=== PATIENT | female | born 1975 | race Caucasian/White ===

== ENCOUNTER 2023-07-25 08:38 | Day surgery (SDC) | payer OTHER ==
[~2023-07-25] VITALS: Ht 154.9 cm; Wt 98.4 kg
[~2023-07-25 08:38] MED LIST: ENAL-197 PO; HYDR-4004 PO
[2023-07-25] MEDS ORDERED: fentaNYL citrate 0.05 MG/ML VIAL ONE (09:34)
[2023-07-25] MEDS ORDERED: LIDOCAINE 2% 100 MG/5 ML UJET TP ONE (09:34)
[2023-07-25] MEDS ORDERED: fentaNYL citrate 0.05 MG/ML VIAL IVP ONE (11:10)
== END 2023-07-25 10:45 | disposition home or self-care (01) ==
LOC: MOR 08:38 → MMU 08:39 → MOR 10:45
PROVIDERS: ATTEND Internal Medicine Gastroenterology
DX: Z12.11 Encounter for screening for malignant neoplasm of colon (principal); I10 Essential (primary) hypertension; K21.9 Gastro-esophageal reflux disease without esophagitis; F41.9 Anxiety disorder, unspecified; E66.9 Obesity, unspecified; F32.A Depression, unspecified; Z68.41 Body mass index [BMI] 40.0-44.9, adult; Z79.899 Other long term (current) drug therapy
CPT/HCPCS: 45378; J3010

== ENCOUNTER 2023-11-10 05:10 | Emergency (ER) | payer OTHER ==
[~2023-11-10] VITALS: Ht 157.5 cm; Wt 94.8 kg
[2023-11-10 05:16] VITALS: BP 124/78; PULSE 95; RESP 20; TEMP 98.7; O2SAT 98
[2023-11-10] MEDS ORDERED: NAPR-1704 PO (06:11)
[2023-11-10] MEDS ORDERED: CEPH-588 PO (06:11)
[2023-11-10] MEDS ORDERED: KETOROLAC 30 MG/ML VIAL IM ONE (06:20)
[2023-11-10 06:30] VITALS: BP 120/65; PULSE 87; RESP 20; TEMP 98.7; O2SAT 98
== END 2023-11-10 06:30 | disposition home or self-care (01) ==
LOC: MED 05:10
DX: N39.0 Urinary tract infection, site not specified (principal); I10 Essential (primary) hypertension; Z79.899 Other long term (current) drug therapy
CPT/HCPCS: 81002; 81025; 96365; 99284; J1885

== ENCOUNTER 2023-11-24 17:01 | Emergency (ER) | payer OTHER ==
[~2023-11-24] VITALS: Ht 157.5 cm; Wt 97.5 kg
[~2023-11-24 17:01] MED LIST changes: +CEPH-588 PO; +NAPR-1704 PO
[2023-11-24 17:26] VITALS: BP 130/84; PULSE 91; RESP 16; TEMP 99.5; O2SAT 98
[2023-11-24 17:53] LABS: BASOPHILS % (AUTO) 0.4 % (0.0-2.0); EOSINOPHILS % (AUTO) 0.2 % (0.0-4.0); HEMATOCRIT 39.8 % (36-48); HEMOGLOBIN 13.4 g/dL (12.0-16.0); LYMPHOCYTES # (AUTO) 1.4 K/uL (2.5-16.5); LYMPHOCYTES % (AUTO) 18.2 % (20.5-51.1); MEAN CORPUSCULAR HEMOGLOBIN 28 pg (27-31); MEAN CORPUSCULAR HGB CONC 34 g/dL (33-37); MEAN CORPUSCULAR VOLUME 82.8 fL (80-94); MONOCYTES # (AUTO) 0.6 K/uL (0.8-1.0); MONOCYTES % (AUTO) 7.6 % (1.7-9.3); NEUTROPHILS # (AUTO) 5.6 K/uL (1.8-7.7); NEUTROPHILS % (AUTO) 73.6 % (42.2-75.2); PLATELET COUNT (AUTO) 288 K/uL (140-450); RED BLOOD CELL COUNT(AUTO) 4.81 MIL/uL (4.20-5.40); RED CELL DISTRIBUTION WIDTH 12.7 % (11.6-13.7); WHITE BLOOD COUNT (AUTO) 7.6 K/uL (4.8-10.8)
[2023-11-24 18:29] LABS: ANION GAP 13.7 (8-16); CALCIUM 9.1 mg/dL (8.5-10.1); CARBON DIOXIDE 23.2 mmol/L (21-32); CREATININE 1.2 mg/dL (0.6-1.3); POTASSIUM 3.9 mmol/L (3.5-5.1); TOTAL BILIRUBIN 0.8 mg/dL (0.0-1.0); TOTAL PROTEIN, SERUM 8.6 g/dL (6.4-8.2)
[2023-11-24] MEDS ORDERED: ONDANSETRON 4 MG ODT PO ONE (18:30)
[2023-11-24] MEDS ORDERED: FAMO-90 PO (21:19)
[2023-11-24] MEDS ORDERED: NITR100C7 PO (21:19)
[2023-11-24 22:06] LABS: APPEARANCE,URINE CLOUDY (CLEAR); BILIRUBIN,URINE 1+ (NEGATIVE); BLOOD, URINE 1+ (NEGATIVE); COLOR,URINE YELLOW (YELLOW); LEUKOCYTE ESTERASE ,URINE 2+ (NEGATIVE); NITRITE, URINE NEGATIVE (NEGATIVE); PROTEIN,URINE 3+ (NEGATIVE); UGLUCOSE TRACE (NEGATIVE)
[2023-11-24 22:15] LABS: BACTERIA,URINE 3+ /HPF (None Seen); ICTOTEST NEGATIVE (NEGATIVE); MUCUS,URINE 1+ /LPF (None Seen); SQUAMOUS EPITHELIAL CELL,UR 4-10 (MOD) /LPF (0-3 (FEW)); TRICHOMONAS,URINE None Seen /HPF (None Seen); WBC,URINE TOO MANY TO COUNT /HPF (0-5); WHITE BLOOD CELL CASTS,URINE 0-3 /LPF (None Seen); YEAST,URINE None Seen /HPF (None Seen)
== END 2023-11-24 21:28 | disposition home or self-care (01) ==
LOC: MED 17:01
DX: K29.70 Gastritis, unspecified, without bleeding (principal); N39.0 Urinary tract infection, site not specified; I10 Essential (primary) hypertension; Z79.899 Other long term (current) drug therapy
CPT/HCPCS: 36415; 80053; 81001; 81025; 83690; 85025; 87086; 99283; G0480; Q0162

== ENCOUNTER 2023-11-27 17:35 | Inpatient (IN) | payer OTHER ==
[~2023-11-27] VITALS: Ht 157.5 cm; Wt 94.3 kg
[~2023-11-27 17:35] MED LIST changes: +FAMO-90 PO; +NITR100C7 PO
[2023-11-27 17:45] VITALS: BP 127/91; PULSE 88; RESP 20; TEMP 97.7; O2SAT 98
[2023-11-27] MEDS ORDERED: MORPHINE SULFATE 4 MG/ML SYR IVP ONE ×2 (18:50→23:55)
[2023-11-27] MEDS ORDERED: METOCLOPRAMIDE 10 MG/2 ML INJ VIAL IVP ONE (18:50)
[2023-11-27 20:14] LABS: BASOPHILS % (AUTO) 0.2 % (0.0-2.0); EOSINOPHILS % (AUTO) 0.1 % (0.0-4.0); HEMATOCRIT 44.2 % (36-48); HEMOGLOBIN 14.6 g/dL (12.0-16.0); LYMPHOCYTES # (AUTO) 1.4 K/uL (2.5-16.5); LYMPHOCYTES % (AUTO) 11.9 % (20.5-51.1); MEAN CORPUSCULAR HEMOGLOBIN 28 pg (27-31); MEAN CORPUSCULAR HGB CONC 33 g/dL (33-37); MEAN CORPUSCULAR VOLUME 83.6 fL (80-94); MONOCYTES # (AUTO) 0.7 K/uL (0.8-1.0); MONOCYTES % (AUTO) 5.6 % (1.7-9.3); NEUTROPHILS # (AUTO) 9.8 K/uL (1.8-7.7); NEUTROPHILS % (AUTO) 82.2 % (42.2-75.2); PLATELET COUNT (AUTO) 360 K/uL (140-450); RED BLOOD CELL COUNT(AUTO) 5.29 MIL/uL (4.20-5.40); RED CELL DISTRIBUTION WIDTH 13.2 % (11.6-13.7); WHITE BLOOD COUNT (AUTO) 11.9 K/uL (4.8-10.8)
[2023-11-27] MEDS ORDERED: METOCLOPRAMIDE 10 MG/2 ML INJ VIAL ONE (20:32)
[2023-11-27] MEDS ORDERED: MORPHINE SULFATE 4 MG/ML SYR ONE ×2 (20:33→23:55)
[2023-11-27 20:35] LABS: ANION GAP 17.3 (8-16); CARBON DIOXIDE 25.7 mmol/L (21-32); CHLORIDE 95 mmol/L (98-107); CREATININE 1.6 mg/dL (0.6-1.3); GFR ARICAN-AMERICAN 44 mL/min (>90); GFR NON ARICAN-AMERICAN 37 mL/min (>90); GLUCOSE 275 mg/dL (74-106); SODIUM SERUM 133 mmol/L (136-145); UREA NITROGEN, BLOOD 15 mg/dL (7-18)
[2023-11-27 20:48] LABS: ALANINE AMINOTRANSFERASE 787 U/L (12-78); ALBUMIN 3.3 g/dL (3.4-5.0); ALKALINE PHOSPHATASE 300 U/L (50-136); ASPARTATE AMINOTRANSFERASE 437 U/L (15-37); TOTAL BILIRUBIN 4.1 mg/dL (0.0-1.0); TOTAL PROTEIN, SERUM 8.9 g/dL (6.4-8.2)
[2023-11-27 21:34] LABS: LIPASE 14520 U/L (16-77)
[2023-11-28] MEDS: cefTRIAXone 2,000 MG in DEXTROSE 5% 100 ML IV SCH (01:00)
[2023-11-28] MEDS ORDERED: MAGNESIUM OXIDE 400 MG TAB PO PRN (01:05)
[2023-11-28] MEDS ORDERED: ONDANSETRON 4 MG/2 ML VIAL IVP PRN (01:05)
[2023-11-28] MEDS ORDERED: KCL 20 MEQ IN 100 mL PREMIX 200 ML IV PRN (01:05)
[2023-11-28] MEDS ORDERED: POTASSIUM CHLORIDE 10 MEQ TABER PO PRN (01:05)
[2023-11-28] MEDS ORDERED: HYDROcodone/APAP 5/325 MG 1 TAB TAB PO PRN (01:05)
[2023-11-28] MEDS ORDERED: MAG SULF 2000 MG/WATER PREMIX 50 ML IV PRN (01:05)
[2023-11-28] MEDS ORDERED: cefTRIAXone 2,000 MG VIAL ONE (02:43)
[2023-11-28] MEDS: NACL 0.9% 1,000 ML IV SCH ×4 (05:41→21:05)
[2023-11-28] MEDS: MORPHINE SULFATE 4 MG/ML SYR IVP PRN ×2 (05:51→11:41)
[2023-11-28 07:36] VITALS: O2SAT 98
[2023-11-28 09:36] VITALS: O2SAT 98
[2023-11-28 11:36] VITALS: O2SAT 98
[2023-11-28 12:53] VITALS: RESP 15; O2SAT 95
[2023-11-28 16:00] VITALS: BP 122/70; PULSE 84; RESP 18; TEMP 98.3; O2SAT 95
[2023-11-28 17:37] LABS: ALBUMIN 2.8 g/dL (3.4-5.0); ANION GAP 14.1 (8-16); CALCIUM 8.9 mg/dL (8.5-10.1); CARBON DIOXIDE 26.3 mmol/L (21-32); POTASSIUM 4.4 mmol/L (3.5-5.1); TOTAL BILIRUBIN 1.3 mg/dL (0.0-1.0)
[2023-11-28 20:00] VITALS: PULSE 100; RESP 20; O2SAT 94
[2023-11-29] VITALS: BP 119/80; PULSE 100; RESP 20; TEMP 98.8; O2SAT 94
[2023-11-29] MEDS: cefTRIAXone 2,000 MG in DEXTROSE 5% 100 ML IV SCH (00:54)
[2023-11-29] MEDS: NACL 0.9% 1,000 ML IV SCH ×3 (03:45→15:40)
[2023-11-29 06:25] LABS: BASOPHILS % (AUTO) 0.1 % (0.0-2.0); EOSINOPHILS % (AUTO) 0.1 % (0.0-4.0); HEMATOCRIT 38.2 % (36-48); HEMOGLOBIN 12.7 g/dL (12.0-16.0); LYMPHOCYTES # (AUTO) 1.6 K/uL (2.5-16.5); LYMPHOCYTES % (AUTO) 8.6 % (20.5-51.1); MEAN CORPUSCULAR HEMOGLOBIN 28 pg (27-31); MEAN CORPUSCULAR HGB CONC 33 g/dL (33-37); MEAN CORPUSCULAR VOLUME 82.6 fL (80-94); MONOCYTES # (AUTO) 1.2 K/uL (0.8-1.0); MONOCYTES % (AUTO) 6.8 % (1.7-9.3); NEUTROPHILS # (AUTO) 15.5 K/uL (1.8-7.7); NEUTROPHILS % (AUTO) 84.4 % (42.2-75.2); PLATELET COUNT (AUTO) 337 K/uL (140-450); RED BLOOD CELL COUNT(AUTO) 4.62 MIL/uL (4.20-5.40); RED CELL DISTRIBUTION WIDTH 13.7 % (11.6-13.7); WHITE BLOOD COUNT (AUTO) 18.4 K/uL (4.8-10.8)
[2023-11-29 06:39] LABS: ALBUMIN 2.5 g/dL (3.4-5.0); ANION GAP 13.5 (8-16); CALCIUM 8.4 mg/dL (8.5-10.1); CARBON DIOXIDE 24.8 mmol/L (21-32); CREATININE 0.9 mg/dL (0.6-1.3); MAGNESIUM 2.1 mg/dL (1.8-2.4); PHOSPHORUS 2.5 mg/dL (2.5-4.9); POTASSIUM 4.3 mmol/L (3.5-5.1); TOTAL BILIRUBIN 0.9 mg/dL (0.0-1.0); TOTAL PROTEIN, SERUM 8.2 g/dL (6.4-8.2)
[2023-11-29 08:00] VITALS: BP 135/90; PULSE 90; PULSE 96; RESP 18; TEMP 98.9; O2SAT 94; O2SAT 98
[2023-11-29 16:00] VITALS: BP 136/81; PULSE 90; RESP 18; TEMP 98.8; O2SAT 98
== END 2023-11-29 19:20 | DRG 282 ==
LOC: MED 17:35 → MTU 11-28 01:05
PROVIDERS: ADMIT Hospitalist; ATTEND Hospitalist
DX: K85.10 Biliary acute pancreatitis without necrosis or infection (principal); N17.0 Acute kidney failure with tubular necrosis; E44.0 Moderate protein-calorie malnutrition; K81.9 Cholecystitis, unspecified; R65.10 Systemic inflammatory response syndrome (SIRS) of non-infectious origin without acute organ dysfunction; I10 Essential (primary) hypertension; Z79.899 Other long term (current) drug therapy; Z68.38 Body mass index [BMI] 38.0-38.9, adult
CPT/HCPCS: 36415; 76705; 80053; 83690; 83735; 84100; 84484; 84703; 85025; 87081; 93005; 96374; 96375; 96376; 99291; J0696; J1644; J2270; J2405; J2765; J7060; Q0092